=== PATIENT | female | born 1995 | race African-American/Black ===

== ENCOUNTER 2019-03-18 14:54 | Emergency (ER) | payer MEDICAID ==
[~2019-03-18] VITALS: Ht 162.6 cm; Wt 85.3 kg
[2019-03-18 15:02] VITALS: BP 116/77; Ht 162.6 cm; Wt 85.3 kg
== END 2019-03-18 16:50 | disposition home or self-care (01) ==
LOC: ED 14:54
DX: N94.6 Dysmenorrhea, unspecified (principal)